=== PATIENT | female | born 1940 | race Two or more races ===

== ENCOUNTER 2017-12-04 05:53 | Emergency (ER) | payer MEDICARE, BC ==
[~2017-12-04] VITALS: Ht 152.4 cm; Wt 86.6 kg
[~2017-12-04 05:53] MED LIST: AMIO200T2 PO; DABI150C PO; DEXL60CA3 PO; LEVO25TA2 PO; LORA1TAB PO; METF500T3 PO; METO-356 PO
--- NOTE | 2017-12-04 06:17 | NUR ---
Patient brought in by daughter, c/o bleeding on left breast. Patient states she had a lumpectomy last , November 24, 2017, and on Eliquis medication. Patient states pain on breast only when pressure applied 2/10, was bleeding all night, only called daughter this morning. Patient states she took Hassell a few hours ago.
--- NOTE | 2017-12-04 06:31 | NUR ---
Dr. Call at bedside for MSE.
--- NOTE | 2017-12-04 06:50 | NUR ---
Patient discharged to home in stable conditon. Written and verbal after care instructions given. Patient verbalizes understanding of instructions. Patient ambulated out of ER with steady gait, no acute signs of distress, VSS, all belongings taken.
[2017-12-04 06:51] VITALS: BP 146/72
== END 2017-12-04 06:52 | disposition home or self-care (01) ==
LOC: ER 05:57
DX: L76.22 Postprocedural hemorrhage of skin and subcutaneous tissue following other procedure (principal); I10 Essential (primary) hypertension; E11.9 Type 2 diabetes mellitus without complications; Z88.1 Allergy status to other antibiotic agents; Z88.8 Allergy status to other drugs, medicaments and biological substances; Z79.84 Long term (current) use of oral hypoglycemic drugs; Z79.899 Other long term (current) drug therapy
CPT/HCPCS: A4663